=== PATIENT | male | born 1960 | race Caucasian/White ===

== ENCOUNTER 2017-07-24 05:14 | Inpatient (IN) | payer OTHER, SELFPAY ==
[2017-07-24] VITALS (18 sets, daily range): BP systolic 98–150; BP diastolic 62–106; PULSE 58–112; RESP 12–32; TEMP 36.5–37; O2SAT 93–100; BMI 18.1; BMI 17.9
--- NOTE | 2017-07-24 05:26 | RAD_ITS ---
STUDY: X-RAY CHEST REASON FOR EXAM: Male, 57 years old. Shortness of breath for 2 hours and chest pain. TECHNIQUE: PA and lateral views of the chest. COMPARISON: CT of the chest dated July 24, 2017. FINDINGS: Cardiac monitoring leads are present. There is hyperinflation of the lungs consistent with chronic obstructive lung disease (COPD). There is a moderately large right-sided pneumothorax. Estimated size is approximately 25%. There is some groundglass attenuation in the right lung probably related atelectasis. Left lung appears to be clear. Normal size heart. Normal mediastinum and ray. Normal visualized pulmonary arteries. There is atherosclerotic calcification of the aortic arch with tortuosity. There are diffuse degenerative changes of the visualized thoracic spine. There is deformity of several left-sided ribs probably related to old rib fractures. There is no demonstrated abnormality of the visualized soft tissue structures of the upper abdomen. RAD/Chest PA and Lateral IMPRESSION: 1. Moderately large right-sided pneumothorax. 2. COPD. Electronically Signed: Jennifer Moreno MD at 7:34 EDT , Service support ,
--- NOTE | 2017-07-24 05:28 | ED.VISSUMM ---
- ER Visit Summary Date of Service: 07/24/17 Chief Complaint: [] Short of breath History of Present Illness: The patient is a 57 M no short of breath when he woke up today. He does have history of COPD and smokes cigarettes. He felt well last night. No significant cough. 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 No recent albuterol prednisone. Denies any PE risk factors. Denies any cardiac disease or history of cardiac risk factors. Takes no medications Physical Examination: Vital signs reviewed General: Well-nourished well-developed Head: Normocephalic atraumatic Eyes: Pupils equal round and reactive to light extraocular movements intact ENT: TMs clear no hemotympanum no trauma Neck: Nontender full range of motion Cardiovascular: Regular rate rhythm no murmurs normal S1-S2 Respiratory: No distress and expiratory wheezes diffusely. Mild in nature. Positive barrel chest. Decreased breath sounds diffusely secondary to barrel chest. Chest nontender Abdomen: Soft nontender nondistended normal bowel sounds no masses Back: Nontender no CVA tenderness Extremities: Nontender active range of motion ?4 extremities no trauma Skin: Normal color no trauma Neuro alert oriented cranial nerves II through XII intact normal strength sensation reflexes Test Results: [] Emergency Department Course and Treatment: [] Given albuterol and Atrovent breathing treatment after being placed on nasal cannula oxygen. Lab work and chest x-ray obtained. 3 shows a 30% right-sided pneumothorax. CBC is normal except 71% segs and EKG shows sinus at rate of 100 PVCs no ischemia. Chemistries normal except glucose 125. Troponin 0 0.07. Patient given oxygen given a breathing treatment with good relief of symptoms. Initially patient's troponin came back 0.07 so a CTA was ordered to rule out PE. Discuss with surgery as well as the hospitalist. The patient likely has a 30% pneumo causing some cardiac strain. I will hold off on giving him aspirin due to the fact that he likely needs a chest tube. Discussed with surgery and they will be in to see the patient. Treatment Plan: [] Disposition: [] Impression: []R Sided pneumothorax spontaneous inDeterminate troponin This note was generated with [employer] dictation software. It may contain incorrect words, spelling, and punctuation that were not noted in review of the chart prior to signing ED Disposition - Plan for ED Patient: Chief Complaint: Shortness of Breath Referrals: [facility],Out of [NON-STAFF] -
--- NOTE | 2017-07-24 05:29 | ED.RN ---
NO OLD EKG'S IN MUSE
[2017-07-24] MEDS: Ipratropium/Albuterol Sulfate 3 ML AMPUL.NEB INHALATION ×2 (05:46→20:15)
[2017-07-24 06:03] LABS: Absolute Neutrophil Count 5.3 X10^3/uL (2.0-7.7); Basophil# 0.01 X10^3/uL; Basophil% 0.1 % (0-1); Eosinophil# 0.16 X10^3/uL; Eosinophils% 2.2 % (0-5); Hematocrit 46.8 % (40-54); Hemoglobin 15.4 g/dl (13.0-16.5); Lymphocyte % 18.9 % (19-41); Mean Corp Hgb Conc 32.9 g/gl (32-36); Mean Corpuscular Hgb 30.6 pg (27.0-32.0); Mean Platelet Vol. 10.9 fl (6.2-12.0); Monocyte# 0.56 X10^3/uL; Monocyte% 7.6 % (0-10); Neutrophil # 5.26 X10^3/uL (2.7-7.7); Neutrophil % 71.1 % (47-70); Platelet Count 246 K/mm3 (150-450); RBC Distribution Width CV 12.6 % (11.6-14.6); Red Blood Count 5.03 M/mm3 (4.6-6.2); White Blood Count 7.4 K/mm3 (4.4-11.0)
[2017-07-24 06:10] LABS: POSITIVE COUNT NO; POSITIVE DIFFERENTIAL NO; POSITIVE MORPHOLOGY NO
[2017-07-24 06:16] LABS: Anion Gap 5 (5-15); BUN 18 mg/dL (7-18); BUN/Creat Ratio 18.1 RATIO (10-20); Calcium,Total 8.6 mg/dL (8.5-10.1); Chloride 107 mmol/L (98-107); EST Glomerular Filtration Rate 82 mL/min (>60); Est Glom Filt Rate - Afr Amer 99 mL/min (>60); Estimated Creatinine Clearance 61.73 ml/min; Glucose 125 mg/dL (74-106); Potassium 4.7 mmol/L (3.5-5.1); Sodium Level 144 mmol/L (136-145)
--- NOTE | 2017-07-24 06:26 | CT_ITS ---
STUDY: CTA CHEST REASON FOR EXAM: Male, 57 years old. Shortness of breath starting this morning. RADIATION DOSAGE (If Supplied By Facility): CTDIvol = ( 5.98 ) mGy, DLP = ( 212.58 ) mGycm TECHNIQUE: The examination was performed with the intravenous administration of 75 ml of Isovue 370 contrast material. Post-processing of the angiographic images was performed, with multiplanar reformation and 3D reconstruction. Multiple images are limited by patient motion. Individualized dose optimization techniques were used for this CT. COMPARISON: Chest radiograph dated July 24, 2017. FINDINGS: Cardiac monitoring leads are present. Normal enhancement of the main pulmonary artery and right and left pulmonary arteries. Normal enhancement of the bilateral peripheral pulmonary arteries. There is no demonstrated pulmonary embolism. There is atherosclerotic calcification of the aortic arch with tortuosity. Maximum transverse dimension of ascending thoracic aorta measures approximately 3.7 cm. There is no demonstrated aortic dissection. Normal heart and pericardium. Normal mediastinum. Normal hilar regions. Normal visualized trachea and bronchi. The lungs are hyper expanded, with flattening of the hemidiaphragms. There are multiple lucencies scattered throughout both lungs probably related to centrilobular emphysema. There is a moderately large right-sided pneumothorax. Estimated size is about 25%. No pleural effusions are visualized. There is subtle left apical pleural thickening. Normal chest wall structures. There is deformity of several left-sided ribs probably related to old rib fractures. There is increased thoracic kyphosis. There is multilevel spondylosis and degenerative disc disease. Normal visualized upper abdomen. CT/CTA Chest W/WO Contrast IMPRESSION: 1. No CTA demonstrated pulmonary embolism or arterial dissection. 2. Moderately large right-sided pneumothorax. Electronically Signed: Jennifer Moreno MD at 7:43 EDT , Service support ,
--- NOTE | 2017-07-24 07:31 | PCM.HP.STD ---
Problem List (1) Shortness of breath Status: Acute History of Present Illness Date of Admission: 07/24/17 Chief Complaint: Shortness of breath The patient is a 57 year old M who was seen in the emergency room at [facility] with complaints of sudden onset of shortness of breath early this morning approximately 4 AM. Patient had no chest pain, he denied any cough, sputum production, fever, chills, or hemoptysis. Workup in the emergency room included labs which were remarkable for slightly elevated troponin, chest x-ray showed a pneumothorax on the right side approximately 40-50%, CT of the chest was performed which showed extensive emphysematous changes with blebs and the pneumothorax. Patient will be admitted to PCU, he will be seen by general surgery for chest tube insertion, cardiac enzymes will be cycled, he will be monitored on telemetry. EKG shows a normal sinus rhythm with unifocal PVCs. No evidence of ischemic changes was noted on the EKG Past Medical History Allergies No Known Allergies Allergy (Verified 07/24/17 05:16) Home Medications: Ambulatory Orders Medication Instructions Recorded NK [NK] 07/24/17 Surgical History: no surgical history Psychiatric History: No pertinent psych hx Lives: Spouse/ Significant Other Smoking Status: Light Smoker (<10/day) Tobacco Use: Cigarettes Alcohol: None Drugs: None - *Family History Maternal History Items: No pertinent history Paternal History Items: No pertinent history Review of Systems Constitutional: Denies: Anorexia, Chills, Fever, Night Sweats, Malaise, Weakness, Weight Change, Fatigue Eyes: Denies: Blurred vision, Cataracts, Conjunctivae Inflammation HEENT: Denies: Difficulty Swallowing, Dysphasia, Ear Pain, Eye Pain, Head Aches, Hearing Changes, Nasal bleeding, Nasal Congestion, Post Nasal Drip Cardiovascular: Denies: Chest Pain, Claudication, Chest Pressure, Chest Tightness, Edema, Heaviness, Light Headedness, Palpitations, Syncope Respiratory: Reports: Shortness of Breath, Shortness of breath at rest, Shortness of breath upon exertion. Denies: Cough, Hemoptysis, Pleuritic Pain, Sputum production, Wheezing Gastrointestinal: Denies: Abdominal Pain, Constipation, Diarrhea, Hematemesis, Hematochezia, Nausea, Melena, Vomiting Genitourinary: Denies: Dysuria, Frequency, Hematuria, Hesitancy, Incontinence, Nocturia, Urgency Musculoskeletal: Denies: Joint Pain, Joint stiffness, Joint swelling Skin: Denies: Dryness, Jaundice, Pruritis, Rash Neurological: Denies: Blurred vision, Double vision, Slurred speech, Difficulty swallowing, Focal weakness, Headaches, Numbness, Tingling Psychiatric: Denies: Anxiety, Depression, Homicidal Ideations, Suicidal Ideations Endocrine: Denies: Change in Body Habitus, Heat/ Cold Intolerance, Polydipsia, Polyuria, Hx of Irradiation Hematologic/ Lymphatic: Denies: Adenopathy, Anemia, Easy Bruising, Easy Bleeding, Petechiae, Purpura VTE Information - Inpt Only VTE Present on Admission: No VTE Mechan Device Prophylaxis: None VTE Pharm Prophylaxis ordered?: Yes Patient Problems: Active and Suspected Problems Shortness of breath (Acute) - Physical Exam General: Alert, Oriented x3, Cooperative, No apparent distress, Well developed, Well nourished HEENT: Atraumatic, PERRLA, EOMI, Normocephalic Oral: Moist Mucosa Neck: Supple, No JVD, Negative Carotid Bruits, No Nuchal Rigidity, Trachea Midline, Thyroid Normal Size and Texture Lungs: Clear to auscultation, No rhonchi, No wheeze, No rales, Diminished - Lung sounds are diminished on the right Cardiovascular: Regular rate, Regular Rhythm, Normal S1, Normal S2, No murmurs, No Ectopic Activity, PMI Normal Abdomen: Bowel Sounds Present, Soft, Non Tender, Non-Distended, No hernias noted Extremities: No clubbing, No cyanosis, No edema, Capillary Refill Less than 3 Seconds, Clubbing Skin: No rashes, No breakdown Musculoskeletal: No Tenderness to Palpation of Joints or Extremities Neurological: Cranial nerves II-XII grossly intact, Neuro grossly intact, Muscle tone normal, Sensory exam intact to light touch and pain, Coordination normal Psych/Mental Status: Normal Affect, Appropriate, Alert and oriented to time, place, person, mood and affect Vital Signs Temp Pulse Resp BP Pulse Ox 97.8 F 104 H 16 121/83 H 97 07/24/17 05:17 07/24/17 07:21 07/24/17 07:21 07/24/17 07:21 07/24/17 07:21 Oxygen Flow Rate (L/min) 2 Oxygen Delivery Method Nasal Cannula Weight: 54.2 kg Body Mass Index (BMI) 18.1 Laboratory Tests Past 24 Hrs 07/24/17 07/24/17 05:42 05:42 WBC 7.4 RBC 5.03 Hgb 15.4 Hct 46.8 MCV 93.0 MCH 30.6 MCHC 32.9 RDW 12.6 RDW Differential 42.0 Plt Count 246 MPV 10.9 Immature Gran % (Auto) 0.100 Neut % (Auto) 71.1 H Lymph % (Auto) 18.9 L [place] % (Auto) 7.6 Eos % (Auto) 2.2 Baso % (Auto) 0.1 Absolute Neuts (auto) 5.3 Absolute Lymphs (auto) 1.40 Total Counted Not Reportable Sodium 144 Potassium 4.7 Chloride 107 Carbon Dioxide 32.0 Anion Gap 5 BUN 18 Creatinine 1.00 Estim Creat Clear Calc 61.73 Est GFR (MDRD) Af Amer 99 Est GFR (MDRD) Non-Af 82 BUN/Creatinine Ratio 18.1 Glucose 125 H Calcium 8.6 Troponin I 0.072 H Assessment/Plan Active and Suspected Problems Shortness of breath (Acute) #1 spontaneous right pneumothorax secondary to emphysematous bleb popping-patient will be seen by general surgery and will need a chest tube, he will be admitted to PCU, monitored on telemetry #2 troponin elevation-significance unknown-patient's enzymes will be cycled on PCU #3 COPD-severe, patient is on no medications, there is no wheezing on auscultation today, I will not place him on aerosol treatments Code Visit Inpatient E&M: 79058 Init Hosp L3
--- NOTE | 2017-07-24 07:42 | HP.PCM_ITS ---
Problem List (1) Shortness of breath Status: Acute History of Present Illness Date of Admission: 07/24/17 Chief Complaint: Shortness of breath The patient is a 57 year old M who was seen in the emergency room at [facility] with complaints of sudden onset of shortness of breath early this morning approximately 4 AM. Patient had no chest pain, he denied any cough , sputum production, fever, chills, or hemoptysis. Workup in the emergency room included labs which were remarkable for slightly elevated troponin, chest x -ray showed a pneumothorax on the right side approximately 40-50%, CT of the chest was performed which showed extensive emphysematous changes with blebs and the pneumothorax. Patient will be admitted to PCU, he will be seen by general surgery for chest tube insertion, cardiac enzymes will be cycled, he will be monitored on telemetry. EKG shows a normal sinus rhythm with unifocal PVCs. No evidence of ischemic changes was noted on the EKG Past Medical History Allergies No Known Allergies Allergy (Verified 07/24/17 05:16) Home Medications: Ambulatory Orders Medication Instructions Recorded NK [NK] 07/24/17 Surgical History: no surgical history Psychiatric History: No pertinent psych hx Lives: Spouse/ Significant Other Smoking Status: Light Smoker (<10/day) Tobacco Use: Cigarettes Alcohol: None Drugs: None - *Family History Maternal History Items: No pertinent history Paternal History Items: No pertinent history Review of Systems Constitutional: Denies: Anorexia, Chills, Fever, Night Sweats, Malaise, Weakness , Weight Change, Fatigue Eyes: Denies: Blurred vision, Cataracts, Conjunctivae Inflammation HEENT: Denies: Difficulty Swallowing, Dysphasia, Ear Pain, Eye Pain, Head Aches , Hearing Changes, Nasal bleeding, Nasal Congestion, Post Nasal Drip Cardiovascular: Denies: Chest Pain, Claudication, Chest Pressure, Chest Tightness, Edema, Heaviness, Light Headedness, Palpitations, Syncope Respiratory: Reports: Shortness of Breath, Shortness of breath at rest, Shortness of breath upon exertion. Denies: Cough, Hemoptysis, Pleuritic Pain, Sputum production, Wheezing Gastrointestinal: Denies: Abdominal Pain, Constipation, Diarrhea, Hematemesis, Hematochezia, Nausea, Melena, Vomiting Genitourinary: Denies: Dysuria, Frequency, Hematuria, Hesitancy, Incontinence, Nocturia, Urgency Musculoskeletal: Denies: Joint Pain, Joint stiffness, Joint swelling Skin: Denies: Dryness, Jaundice, Pruritis, Rash Neurological: Denies: Blurred vision, Double vision, Slurred speech, Difficulty swallowing, Focal weakness, Headaches, Numbness, Tingling Psychiatric: Denies: Anxiety, Depression, Homicidal Ideations, Suicidal Ideations Endocrine: Denies: Change in Body Habitus, Heat/ Cold Intolerance, Polydipsia, Polyuria, Hx of Irradiation Hematologic/ Lymphatic: Denies: Adenopathy, Anemia, Easy Bruising, Easy Bleeding , Petechiae, Purpura VTE Information - Inpt Only VTE Present on Admission: No VTE Mechan Device Prophylaxis: None VTE Pharm Prophylaxis ordered?: Yes Patient Problems: Active and Suspected Problems Shortness of breath (Acute) - Physical Exam General: Alert, Oriented x3, Cooperative, No apparent distress, Well developed, Well nourished HEENT: Atraumatic, PERRLA, EOMI, Normocephalic Oral: Moist Mucosa Neck: Supple, No JVD, Negative Carotid Bruits, No Nuchal Rigidity, Trachea Midline, Thyroid Normal Size and Texture Lungs: Clear to auscultation, No rhonchi, No wheeze, No rales, Diminished - Lung sounds are diminished on the right Cardiovascular: Regular rate, Regular Rhythm, Normal S1, Normal S2, No murmurs, No Ectopic Activity, PMI Normal Abdomen: Bowel Sounds Present, Soft, Non Tender, Non-Distended, No hernias noted Extremities: No clubbing, No cyanosis, No edema, Capillary Refill Less than 3 Seconds, Clubbing Skin: No rashes, No breakdown Musculoskeletal: No Tenderness to Palpation of Joints or Extremities Neurological: Cranial nerves II-XII grossly intact, Neuro grossly intact, Muscle tone normal, Sensory exam intact to light touch and pain, Coordination normal Psych/Mental Status: Normal Affect, Appropriate, Alert and oriented to time, place, person, mood and affect Vital Signs Temp Pulse Resp BP Pulse Ox 97.8 F 104 H 16 121/83 H 97 07/24/17 05:17 07/24/17 07:21 07/24/17 07:21 07/24/17 07:21 07/24/17 07:21 Oxygen Flow Rate (L/min) 2 Oxygen Delivery Method Nasal Cannula Weight: 54.2 kg Body Mass Index (BMI) 18.1 Laboratory Tests Past 24 Hrs 07/24/17 07/24/17 05:42 05:42 WBC 7.4 RBC 5.03 Hgb 15.4 Hct 46.8 MCV 93.0 MCH 30.6 MCHC 32.9 RDW 12.6 RDW Differential 42.0 Plt Count 246 MPV 10.9 Immature Gran % (Auto) 0.100 Neut % (Auto) 71.1 H Lymph % (Auto) 18.9 L [place] % (Auto) 7.6 Eos % (Auto) 2.2 Baso % (Auto) 0.1 Absolute Neuts (auto) 5.3 Absolute Lymphs (auto) 1.40 Total Counted Not Reportable Sodium 144 Potassium 4.7 Chloride 107 Carbon Dioxide 32.0 Anion Gap 5 BUN 18 Creatinine 1.00 Estim Creat Clear Calc 61.73 Est GFR (MDRD) Af Amer 99 Est GFR (MDRD) Non-Af 82 BUN/Creatinine Ratio 18.1 Glucose 125 H Calcium 8.6 Troponin I 0.072 H Assessment/Plan Active and Suspected Problems Shortness of breath (Acute) #1 spontaneous right pneumothorax secondary to emphysematous bleb popping- patient will be seen by general surgery and will need a chest tube, he will be admitted to PCU, monitored on telemetry #2 troponin elevation-significance unknown-patient's enzymes will be cycled on PCU #3 COPD-severe, patient is on no medications, there is no wheezing on auscultation today, I will not place him on aerosol treatments Code Visit Inpatient E&M: 12968 Init Hosp L3
--- NOTE | 2017-07-24 08:12 | RAD_ITS ---
STUDY: X-RAY CHEST REASON FOR EXAM: Male, 57 years old. Follow-up after chest tube placement. TECHNIQUE: Single AP portable view of the chest. COMPARISON: July 24, 2017 time stamped 6:36 AM. FINDINGS: A small caliber right-sided thoracostomy tube has been placed. Cardiac monitoring leads are present. There is hyperinflation of the lungs consistent with chronic obstructive lung disease (COPD). There is interstitial thickening visible in the right lung. Left lung appears to be clear. There is partial reexpansion of the right lung. There is residual pneumothorax at the right lung apex. There is a small right-sided pleural effusion. Normal size heart. Normal mediastinum and ray. There is prominence of the pulmonary hilar arteries without peripheral pulmonary vascular congestion. There is atherosclerotic calcification of the aortic arch with tortuosity. There is demineralization of the osseous structures. Normal visualized ribs, clavicles, and shoulders. There is no demonstrated abnormality of the visualized soft tissue structures of the upper abdomen. RAD/Chest 1 View (Portable) IMPRESSION: 1. Partial reexpansion of the right lung after placement of right-sided thoracostomy tube. 2. Small right-sided pleural effusion. Electronically Signed: Jennifer Moreno MD at 11:08 EDT , Service support ,
--- NOTE | 2017-07-24 08:24 | OP.PCM_ITS ---
Problem List (1) Pneumothorax on right Status: Acute Report of Operation Date of Procedure: 07/24/17 Pre-Operative Diagnosis: j93.9 spontaneous pneumothorax right side Post-Operative Diagnosis: Same Surgery/Procedure Performed:: 58589 right-sided chest tube Type of Anesthesia:: Local Description of Procedure: Right-sided chest were sterilely prepped and draped in usual fashion. 1% lidocaine plain was injected. Small skin faisal was made. I injected local down in between the muscles entered the chest cavity were air was aspirated. A 14 [place] tube was then placed into the chest cavity and directed in the cephalad direction. It was hooked up to the tube thoracostomy kit and an air leak was identified. A butterfly hub was connected to the tube and sutured to the skin in a U fashion with a 3-0 nylon. Sterile dressings were applied. All the tube endings were taped appropriately. A portable chest x-ray was obtained. - Admit VTE Documentation VTE Present on Admission: No VTE Mechan Device Prophylaxis: None VTE Pharm Prophylaxis ordered?: No Reason prophylaxis not ordered:: Treatment Not Indicated
--- NOTE | 2017-07-24 08:26 | PCM.CONS.GEN ---
Problem List (1) Pneumothorax on right Status: Acute Reason for Consult Date of Consultation: 07/24/17 History of Present Illness: The patient is a 57 year old M who presented to the emergency department with acute onset of shortness of breath. Chest x-ray showed significant right-sided pneumothorax extending down the lateral aspect of the chest wall. He is breathing room air and is not short of breath at this time. He cannot recall any trauma to this area he cannot recall any coughing episodes. He has known COPD and he does smoke about 5 cigarettes a day. Past Medical History Allergies No Known Allergies Allergy (Verified 07/24/17 05:16) Home Medications: Ambulatory Orders Medication Instructions Recorded NK [NK] 07/24/17 Surgical History: no surgical history Psychiatric History: No pertinent psych hx Lives: Spouse/ Significant Other Smoking Status: Light Smoker (<10/day) Tobacco Use: Cigarettes Alcohol: None Drugs: None - *Family History Maternal History Items: No pertinent history Paternal History Items: No pertinent history Review of Systems Cardiovascular: Denies: Chest Pain, Chest Pressure, Chest Tightness, Palpitations Respiratory: Denies: Cough, Hemoptysis, Shortness of breath at rest, Shortness of breath upon exertion, Wheezing Gastrointestinal: Denies: Abdominal Pain, Constipation, Diarrhea, Hematemesis, Nausea, Melena, Vomiting Patient Problems: Active and Suspected Problems Shortness of breath (Acute) Pneumothorax on right (Acute) - Physical Exam Lungs: - - Breath sounds are normal on the left side there are no breath sounds present on the right side Cardiovascular: Regular rate, Regular Rhythm, No murmurs Abdomen: Bowel Sounds Present, Soft, Non Tender, Non-Distended Vital Signs Temp Pulse Resp BP Pulse Ox 97.8 F 104 H 16 121/83 H 97 07/24/17 05:17 07/24/17 07:21 07/24/17 07:21 07/24/17 07:21 07/24/17 07:21 Assessment/Plan Active and Suspected Problems Shortness of breath (Acute) Pneumothorax on right (Acute) Plan will be to place a right-sided chest tube. Risk benefits have been reviewed with the patient the patient agrees to proceed.
[2017-07-24] MEDS: Heparin Injection (Vial) 5,000 UNIT/ML VIAL 5000 UNIT SC ×2 (10:45→22:54)
--- NOTE | 2017-07-24 11:21 | ECHOD_ITS ---
Reason For Study: DYSPNEA Procedure This was a 2D Doppler, Color Flow transthoracic echocardiogram. Technically difficult study due to body habitus. The study was technically limited. Exam performed portable in patient room. Left Ventricle Normal LV size. Left ventricular systolic function is normal. The estimated ejection fraction is 65 %. Transmitral diastolic flow velocities suggest mild (stage 1) diastolic dysfunction (reversed pattern). No regional wall motion abnormalities noted. Right Ventricle Normal RV size. Normal systolic function. Atria Normal left atrium. Normal right atrium. Mitral Valve Normal mitral valve. Tricuspid Valve Normal tricuspid valve. Mild (1+) tricuspid valve insufficiency. Pulmonary artery systolic pressure is 39 mmHg. Aortic Valve Normal aortic valve. Pulmonic Valve Normal pulmonic valve. Great Vessels Normal aortic root. The pulmonary artery is normal size. Normal inferior vena cava. Pericardium/Pleural No pericardial effusion. MMode/2D Measurements & Calculations LVIDd: 3.2 cm IVSd: 0.95 cm Ao root diam: 3.3 cm LVIDs: 2.2 cm LVPWd: 0.83 cm RVDd: 3.5 cm FS: 30.7 % LAV(MOD-bp): 32.8 ml EDV(MOD-sp4): 78.6 ml EDV(MOD-sp2): 104.4 ml LAV(MOD-bp) Indexed: 20.1 ml/m2 ESV(MOD-sp4): 42.8 ml EF(MOD-sp2): 43.6 % LAV(MOD-sp2): 32.8 ml EF(MOD-sp4): 45.6 % LAV(MOD-sp4): 26.2 ml SV(MOD-sp4): 35.9 ml SV(MOD-sp2): 45.5 ml LA A4 area: 10.8 cm2 RA A4 area: 9.4 cm2 Doppler Measurements & Calculations MV E max gregorio: 46.4 cm/sec Lat Peak E' Gregorio: 11.5 cm/sec Med Peak E' Gregorio: 7.7 cm/sec MV A max gregorio: 66.9 cm/sec E/E' lat: 4.0 E/E' med: 6.0 MV E/A: 0.69 Ao V2 max: 88.5 cm/sec LV V1 max: 81.8 cm/sec TR max gregorio: 292.8 cm/sec Ao max P.1 mmHg LV V1 max P.7 mmHg TR max P.3 mmHg Interpretation Summary Normal LV size. Left ventricular systolic function is normal. The estimated ejection fraction is 65 %. Transmitral diastolic flow velocities suggest mild (stage 1) diastolic dysfunction (reversed pattern). Mild (1+) tricuspid valve insufficiency. Pulmonary artery systolic pressure is 39 mmHg. Ordering Physician: Gentry Arriaga Performed By: Juana Spencer, RDCS, RVT
[2017-07-24] MEDS: Carvedilol 6.25 MG Tablet PO ×2 (16:26→21:09)
[2017-07-24] MEDS: Aspirin 81 MG TAB.CHEW PO (16:26)
[2017-07-24] MEDS: MethylPREDNISolone 125 MG/2 ML Vial IV (20:39)
[2017-07-24] MEDS: 0.9% NaCl Peripheral Flush Adult/Peds IV (20:45)
--- NOTE | 2017-07-24 20:45 | RAD_ITS ---
STUDY: X-RAY CHEST REASON FOR EXAM: Male, 57 years old. Shortness of breath TECHNIQUE: Single AP portable view of the chest. COMPARISON: Previous study of earlier this date 10:37 AM FINDINGS: quality assurance monitor chassis leads are present. There is small caliber right-sided chest tube with tip overlying the lateral right mid hemithorax. There is hyperinflation of the lungs consistent with chronic obstructive lung disease (COPD). There is a less than 5% right apical pneumothorax, decreased from the prior study. There is pleural reaction of the lung bases. Normal size heart. Normal mediastinum and ray. Normal visualized pulmonary arteries. There are calcified plaques of the aortic arch. There is a mild mid thoracic levoscoliosis. There are several old healed left-sided rib fractures. There is no demonstrated abnormality of the visualized soft tissue structures of the upper abdomen. RAD/Chest 1 View (Portable) IMPRESSION: Findings consistent with COPD. Less than 5% right apical pneumothorax. Mild mid thoracic levoscoliosis. Several old healed left-sided rib fractures are noted. Electronically Signed: Max Zeng MD at 21:26 EDT , Service support ,
--- NOTE | 2017-07-24 20:52 | CON.PCM_ITS ---
Reason for Consult Date of Consultation: 07/24/17 Reason for Consultation: Abnormal cardiac enzymes History of Present Illness: The patient is a 57 year old M who was seen in the emergency room at [facility] with complaints of sudden onset of shortness of breath early this morning approximately 4 AM. Patient had no chest pain, he denied any cough , sputum production, fever, chills, or hemoptysis. Workup in the emergency room included labs which were remarkable for slightly elevated troponin, chest x -ray showed a pneumothorax on the right side approximately 40-50%, CT of the chest was performed which showed extensive emphysematous changes with blebs and the pneumothorax. It is not clear why the cardiac enzymes were obtained. He had no EKG changes but his cardiac enzymes suggested a rise and fall pattern which may be compatible with myocardial necrosis and a non-ST elevation myocardial infarction. Cardiology was called to evaluate him. On further questioning he has had no dizziness or diaphoresis no near syncope or syncope and has not been previously diagnosed with any cardiac condition. Past Medical History Allergies/Adverse Reactions: Allergies No Known Allergies Allergy (Verified 07/24/17 05:16) Home Medications: Ambulatory Orders Medication Instructions Recorded NK [NK] 07/24/17 Surgical History: no surgical history Psychiatric History: No pertinent psych hx - *Family History Maternal History Items: No pertinent history Paternal History Items: No pertinent history Lives: Spouse/ Significant Other Smoking Status: Light Smoker (<10/day) Tobacco Use: Cigarettes Alcohol: None Drugs: None Review of Systems - Review of Systems General: Denies: Fever, Night Sweats, Fatigue Cardiovascular: Reports: Shortness of Breath, Shortness of Breath at Rest. Denies: Chest Discomfort, Orthopnea, PND, Peripheral Edema, Palpitations, Lightheadedness, Dizziness, Near Syncope, Syncope Respiratory: Denies: Cough, Sputum Production, Hemoptysis Gastrointestinal: Denies: Hematemesis, Hematochezia, Melena Genitourinary: Denies: Dysuria, Hematuria Skin: Denies: Rash Subjectve: Pleasant cachectic man in no distress Objective: Vital Signs Temp Pulse Resp BP Pulse Ox 98.4 F 93 28 H 98/65 97 07/24/17 16:24 07/24/17 20:24 07/24/17 20:24 07/24/17 16:24 07/24/17 20:24 Oxygen Flow Rate (L/min) 2 Oxygen Delivery Method Nasal Cannula Weight: 117 lb 11.629 oz Body Mass Index (BMI) 17.9 Intake and Output for Last 24 Hours 07/22/17 07/23/17 07/24/17 23:59 23:59 23:59 Intake Total 720 / 720 Balance 720 / 720 General: Awake, Alert, Oriented x 3 HEENT: PERRL, EOMI, Sclera Non Icteric Neck: Supple, Good ROM, No Lymph Node Enlargement Lungs: Clear to auscultation Cardiovascular: Regular Rhythm, Normal S1, Normal S2, No Murmurs, No Rubs, No Gallops Vascular: No Carotid Bruits, Normal Femoral Pulses, Normal Radial Pulses, Normal Dorsalis Pedal Pulse, Normal Posterior Tibial Pulses Abdomen: Bowel Sounds Present, Soft, Non Tender, No HSM, No Organomegaly Extremities: No Cyanosis, No Clubbing, No edema Neurological: No Focal Motor or Sensory Deficit 07/24/17 09:25: Troponin I 0.916 H* 07/24/17 12:20: Troponin I 0.789 H* Rhythm: EKG: Normal sinus rhythm with no acute changes of 100 bpm ECHO: Overall preserved left ventricular ejection fraction, small pericardial effusion with no tamponade Assessment/Plan 1. Non-ST elevation myocardial infarction. The above is likely secondary to the underlying coronary artery disease. The exact etiology of the above is not clear at this particular time. He probably has underlying coronary artery disease. At some point after his chest tube is removed he may need an evaluation of the above likely via invasive means. He will continue with baby aspirin statin as well as beta-stephen. Thank you for allowing me to participate in the care of your patient. Please don't hesitate to call if any issues arise
[2017-07-24] MEDS: Atorvastatin Calcium 40 MG Tablet PO (21:09)
[2017-07-25] VITALS (15 sets, daily range): BP systolic 94–104; BP diastolic 56–68; PULSE 79–103; RESP 16–20; TEMP 36.2–37.3; O2SAT 91–99
--- NOTE | 2017-07-25 05:55 | RAD_ITS ---
STUDY: X-RAY CHEST REASON FOR EXAM: Male, 57 years old. Follow-up of right-sided pneumothorax. TECHNIQUE: Two portable AP chest radiographs are obtained with the patient upright. COMPARISON: July 24, 2017. FINDINGS: Cardiac monitoring leads are present. Right-sided thoracostomy tube is present. There is hyperinflation of the lungs consistent with chronic obstructive lung disease (COPD). There is a vague opacity the right lung apex that may represent either pleural thickening or airspace disease. There is mild prominence of the right-sided bronchovascular markings compared to the left lung. There may be a small right-sided pleural effusion. Normal size heart. Normal mediastinum and ray. Normal visualized pulmonary arteries. There is atherosclerotic calcification of the aortic arch with tortuosity. There is demineralization of the osseous structures. There are multiple old left-sided rib fractures. There is no demonstrated abnormality of the visualized soft tissue structures of the upper abdomen. RAD/Chest 1 View (Portable) IMPRESSION: 1. There is no definite evidence for residual right-sided pneumothorax. 2. COPD with pulmonary congestion on the right and small right-sided pleural effusion. Electronically Signed: Jennifer Moreno MD at 5:32 EDT , Service support ,
--- NOTE | 2017-07-25 06:33 | PCM.PN.SRG ---
Patient Problems: Active and Suspected Problems Shortness of breath (Acute) Pneumothorax on right (Acute) Subjective: Patient evaluated resting comfortably in bed. He notes shortness of breath with movement. No shortness of breath at rest. Patient denies having a regular medical doctor or communications operator. He notes history of COPD. CXR this morning demonstrated resolution of the pneumothorax. - Physical Exam General: Alert, Oriented x3, Cooperative Lungs: Clear to auscultation, Normal air movement, Diminished - bilateral bases, - - Chest tube intact. No leak noted. Cardiovascular: Regular rate, Regular Rhythm Vital Signs Temp Pulse Resp BP Pulse Ox 98.6 F 79 16 98/68 99 07/25/17 04:57 07/25/17 04:57 07/25/17 04:57 07/25/17 04:57 07/25/17 04:57 Oxygen Flow Rate (L/min) 2 Oxygen Delivery Method Nasal Cannula Weight: 117 lb 11.629 oz Body Mass Index (BMI) 17.9 Intake and Output for Last 24 Hours 07/23/17 07/24/17 07/25/17 23:59 23:59 23:59 Intake Total 820 / 820 Balance 820 / 820 Laboratory Tests Past 24 Hrs 07/24/17 07/24/17 09:25 12:20 Troponin I 0.916 H* 0.789 H* Medical Necessity - Tobacco Use Smoking Status: Light Smoker (<10/day) Tobacco Use: Cigarettes Assessment/Plan Active and Suspected Problems Shortness of breath (Acute) Pneumothorax on right (Acute) I am following this patient in conjunction with Dr. Malik Impression: Right sided pneumothorax, resolved Place chest tube to water seal and recheck CXR in 6 hours We will continue to monitor this patient Code Visit Inpatient E&M: 87014 [facility] Hosp L1
--- NOTE | 2017-07-25 06:44 | PN.SURG_ITS ---
Patient Problems: Active and Suspected Problems Shortness of breath (Acute) Pneumothorax on right (Acute) Subjective: Patient evaluated resting comfortably in bed. He notes shortness of breath with movement. No shortness of breath at rest. Patient denies having a regular medical doctor or geomagnetician. He notes history of COPD. CXR this morning demonstrated resolution of the pneumothorax. - Physical Exam General: Alert, Oriented x3, Cooperative Lungs: Clear to auscultation, Normal air movement, Diminished - bilateral bases , - - Chest tube intact. No leak noted. Cardiovascular: Regular rate, Regular Rhythm Vital Signs Temp Pulse Resp BP Pulse Ox 98.6 F 79 16 98/68 99 07/25/17 04:57 07/25/17 04:57 07/25/17 04:57 07/25/17 04:57 07/25/17 04:57 Oxygen Flow Rate (L/min) 2 Oxygen Delivery Method Nasal Cannula Weight: 117 lb 11.629 oz Body Mass Index (BMI) 17.9 Intake and Output for Last 24 Hours 07/23/17 07/24/17 07/25/17 23:59 23:59 23:59 Intake Total 820 / 820 Balance 820 / 820 Laboratory Tests Past 24 Hrs 07/24/17 07/24/17 09:25 12:20 Troponin I 0.916 H* 0.789 H* Medical Necessity - Tobacco Use Smoking Status: Light Smoker (<10/day) Tobacco Use: Cigarettes Assessment/Plan Active and Suspected Problems Shortness of breath (Acute) Pneumothorax on right (Acute) I am following this patient in conjunction with Dr. Malik Impression: Right sided pneumothorax, resolved Place chest tube to water seal and recheck CXR in 6 hours We will continue to monitor this patient Code Visit Inpatient E&M: 05080 [facility] Hosp L1
[2017-07-25] MEDS: Ipratropium/Albuterol Sulfate 3 ML AMPUL.NEB INHALATION ×4 (06:45→19:17)
[2017-07-25] MEDS: Aspirin 81 MG TAB.CHEW PO (08:28)
[2017-07-25] MEDS: Heparin Injection (Vial) 5,000 UNIT/ML VIAL 5000 UNIT SC ×2 (09:41→21:37)
--- NOTE | 2017-07-25 09:59 | CASEMGMT ---
Face to Face with patient for initial transition planning/care coordination assessment. DIAZ HERNANDEZ introduced self and role at [facility], pt voices understanding and consents to assessment at this time. Pt is sitting up in bed in no distress at this time. Pt is A/O x4 at this time and answers all questions appropriately at this time. Care providers, pharmacy, and demographics verified. See attached link. Pt voices no further concerns/needs at this time. Advised pt to ask for CM if any further questions/concerns/needs arise, voices understanding. Referral to Saqib BRANDON for AD info at this time, voices understanding. PLAN: [place] DIAZ HERNANDEZ
[2017-07-25] MEDS: Carvedilol 6.25 MG Tablet PO ×2 (11:16→23:28)
--- NOTE | 2017-07-25 11:45 | CASEMGMT ---
SW spoke with patient regarding advance directives. He said he would like to talk about them with his . SW told him if they would like to complete them and need help to ask for Social Work. Karon DUARTE MSW
--- NOTE | 2017-07-25 13:00 | RAD_ITS ---
STUDY: X-RAY CHEST REASON FOR EXAM: Male, 57 years old. History of pneumothorax. TECHNIQUE: Single AP portable view of the chest. COMPARISON: Comparison is made with prior examination dated July 25, 2017 at 3:57 AM. FINDINGS: EKG electrodes are seen. A small caliber chest tube is seen along the lateral aspect of the right hemithorax. Minimal residual right apical pneumothorax. Stable increased interstitial markings are seen in the lungs more prominent on the right side suggestive of scarring. Normal size heart. Normal mediastinum and ray. Normal visualized pulmonary arteries. Normal visualized aortic arch and descending thoracic aorta. Normal visualized thoracic spine. Multiple healed left-sided rib fractures. There is no demonstrated abnormality of the visualized soft tissue structures of the upper abdomen. RAD/Chest 1 View (Portable) IMPRESSION: Minimal right apical pneumothorax. Electronically Signed: Gerry Diaz MD at 14:32 EDT Tel [phone], Service support ,
--- NOTE | 2017-07-25 18:32 | PCM.PROGNOTE ---
Patient Problems: Active and Suspected Problems Shortness of breath (Acute) Pneumothorax on right (Acute) Subjective: Patient was seen and examined today, I discussed his care with with cardiology today, patient's chest tubes on waterseal today and there may be a possibility the chest tube will be pulled tomorrow. Patient will need a coronary angiogram sometime in the near future, not sure when cardiology is planning on this. Patient has had no chest pain or shortness of breath since yesterday. - Physical Exam General: Alert, Oriented x3, Cooperative, No apparent distress, Well developed, Well nourished HEENT: Atraumatic, PERRLA, EOMI, Normocephalic Oral: Moist Mucosa Neck: Supple, No JVD, No Nuchal Rigidity, Trachea Midline, Thyroid Normal Size and Texture Lungs: Clear to auscultation, No rhonchi, No wheeze, No rales, Diminished Cardiovascular: Regular rate, Regular Rhythm, Normal S1, Normal S2, No murmurs, No Ectopic Activity, PMI Normal, No rub noted, No Gallop Abdomen: Bowel Sounds Present, Soft, Non Tender, Non-Distended, No hernias noted Extremities: No clubbing, No cyanosis, No edema, Capillary Refill Less than 3 Seconds Skin: No rashes, No breakdown Musculoskeletal: No Tenderness to Palpation of Joints or Extremities Neurological: Cranial nerves II-XII grossly intact, Neuro grossly intact, Muscle tone normal, Sensory exam intact to light touch and pain, Coordination normal Psych/Mental Status: Normal Affect, Appropriate, Alert and oriented to time, place, person, mood and affect Vital Signs Temp Pulse Resp BP Pulse Ox 99.1 F 96 18 104/68 94 07/25/17 16:15 07/25/17 16:15 07/25/17 16:15 07/25/17 16:15 07/25/17 16:15 Oxygen Flow Rate (L/min) 2 Oxygen Delivery Method Room Air Weight: 53.4 kg Body Mass Index (BMI) 17.9 Intake and Output for Last 24 Hours 07/23/17 07/24/17 07/25/17 23:59 23:59 23:59 Intake Total 820 / 820 1010 / 1010 Output Total 200 / 200 Balance 820 / 820 810 / 810 Medical Necessity - Tobacco Use Smoking Status: Light Smoker (<10/day) Tobacco Use: Cigarettes Assessment/Plan Active and Suspected Problems Shortness of breath (Acute) Pneumothorax on right (Acute) #1 spontaneous right pneumothorax secondary to emphysematous bleb popping-general surgery is continuing to manage his chest tube #2 [id number] is participating in his care, continue aspirin, statin, and beta-stephen. Patient will need coronary angiogram. #3 COPD-severe, patient's lungs remain clear Code Visit Inpatient E&M: 76196 Subs Hosp L2
--- NOTE | 2017-07-25 18:35 | PN_ITS ---
Patient Problems: Active and Suspected Problems Shortness of breath (Acute) Pneumothorax on right (Acute) Subjective: Patient was seen and examined today, I discussed his care with with cardiology today, patient's chest tubes on waterseal today and there may be a possibility the chest tube will be pulled tomorrow. Patient will need a coronary angiogram sometime in the near future, not sure when cardiology is planning on this. Patient has had no chest pain or shortness of breath since yesterday. - Physical Exam General: Alert, Oriented x3, Cooperative, No apparent distress, Well developed, Well nourished HEENT: Atraumatic, PERRLA, EOMI, Normocephalic Oral: Moist Mucosa Neck: Supple, No JVD, No Nuchal Rigidity, Trachea Midline, Thyroid Normal Size and Texture Lungs: Clear to auscultation, No rhonchi, No wheeze, No rales, Diminished Cardiovascular: Regular rate, Regular Rhythm, Normal S1, Normal S2, No murmurs, No Ectopic Activity, PMI Normal, No rub noted, No Gallop Abdomen: Bowel Sounds Present, Soft, Non Tender, Non-Distended, No hernias noted Extremities: No clubbing, No cyanosis, No edema, Capillary Refill Less than 3 Seconds Skin: No rashes, No breakdown Musculoskeletal: No Tenderness to Palpation of Joints or Extremities Neurological: Cranial nerves II-XII grossly intact, Neuro grossly intact, Muscle tone normal, Sensory exam intact to light touch and pain, Coordination normal Psych/Mental Status: Normal Affect, Appropriate, Alert and oriented to time, place, person, mood and affect Vital Signs Temp Pulse Resp BP Pulse Ox 99.1 F 96 18 104/68 94 07/25/17 16:15 07/25/17 16:15 07/25/17 16:15 07/25/17 16:15 07/25/17 16:15 Oxygen Flow Rate (L/min) 2 Oxygen Delivery Method Room Air Weight: 53.4 kg Body Mass Index (BMI) 17.9 Intake and Output for Last 24 Hours 07/23/17 07/24/17 07/25/17 23:59 23:59 23:59 Intake Total 820 / 820 1010 / 1010 Output Total 200 / 200 Balance 820 / 820 810 / 810 Medical Necessity - Tobacco Use Smoking Status: Light Smoker (<10/day) Tobacco Use: Cigarettes Assessment/Plan Active and Suspected Problems Shortness of breath (Acute) Pneumothorax on right (Acute) #1 spontaneous right pneumothorax secondary to emphysematous bleb popping- general surgery is continuing to manage his chest tube #2 [id number] is participating in his care, continue aspirin, statin , and beta-stephen. Patient will need coronary angiogram. #3 COPD-severe, patient's lungs remain clear Code Visit Inpatient E&M: 74692 Subs Hosp L2
[2017-07-25] MEDS: Atorvastatin Calcium 40 MG Tablet PO (21:37)
--- NOTE | 2017-07-25 23:51 | CPS ---
patient refusing Bipap therapy at this time. Patient informed of PAP benefits; patient still refusing said therapy.
[2017-07-26] VITALS (11 sets, daily range): BP systolic 96–134; BP diastolic 50–84; PULSE 73–94; RESP 14–20; TEMP 36.6–36.9; O2SAT 96–100
[2017-07-26 00:26] LABS: Anion Gap 5 (5-15); BUN 25 mg/dL (7-18); BUN/Creat Ratio 30.6 RATIO (10-20); Calcium,Total 8.4 mg/dL (8.5-10.1); Chloride 104 mmol/L (98-107); Creatinine, Serum 0.82 mg/dL (0.70-1.30); EST Glomerular Filtration Rate 103 mL/min (>60); Est Glom Filt Rate - Afr Amer 125 mL/min (>60); Estimated Creatinine Clearance 74.17 ml/min; Glucose 108 mg/dL (74-106); Phosphorus 2.5 mg/dL (2.5-4.9); Potassium 3.9 mmol/L (3.5-5.1); Sodium Level 140 mmol/L (136-145)
--- NOTE | 2017-07-26 05:50 | RAD_ITS ---
STUDY: X-RAY CHEST REASON FOR EXAM: Male, 57 years old. History of right pneumothorax. TECHNIQUE: Single AP portable view of the chest. COMPARISON: Comparison is made with prior study dated July 25, 2017. FINDINGS: EKG liquids are seen. Stable appearance of the right small caliber chest tube along the lateral aspect of the right hemithorax. Tiny residual right apical pneumothorax. This is unchanged. Hyperinflation. Decreased bronchovascular markings in the left hemithorax most likely secondary to emphysematous changes. Normal size heart. Normal mediastinum and ray. Normal visualized pulmonary arteries. Normal visualized aortic arch and descending thoracic aorta. Normal visualized thoracic spine. Multiple healed left rib fractures. There is no demonstrated abnormality of the visualized soft tissue structures of the upper abdomen. RAD/Chest 1 View (Portable) IMPRESSION: Tiny residual right apical pneumothorax. Electronically Signed: Gerry Diaz MD at 8:58 EDT Tel [phone], Service support ,
[2017-07-26] MEDS: Ipratropium/Albuterol Sulfate 3 ML AMPUL.NEB INHALATION ×2 (06:36→14:56)
--- NOTE | 2017-07-26 07:21 | PN.CARD_ITS ---
Subjectve: The patient was seen and evaluated. He appears to be comfortable at this time but still is on the chest tube drainage. He has denied any chest pain whatsoever Objective: Vital Signs Temp Pulse Resp BP Pulse Ox 97.8 F 87 14 96/74 98 07/26/17 03:08 07/26/17 03:08 07/26/17 03:08 07/26/17 03:08 07/26/17 03:08 Oxygen Flow Rate (L/min) 2 Oxygen Delivery Method Room Air Weight: 117 lb 11.629 oz Body Mass Index (BMI) 17.9 Intake and Output for Last 24 Hours 07/24/17 07/25/17 07/26/17 23:59 23:59 23:59 Intake Total 820 / 820 1380 / 1380 0 / 0 Output Total 203 / 203 100 / 100 Balance 820 / 820 1177 / 1177 -100 / -100 General: Ill Appearing HEENT: PERRL, EOMI, Sclera Non Icteric Neck: Supple, Good ROM, No Lymph Node Enlargement Lungs: Diminished Luke Bases Cardiovascular: Regular Rhythm, Normal S1, Normal S2, No Murmurs, No Rubs, No Gallops Vascular: No Carotid Bruits, Normal Femoral Pulses, Normal Radial Pulses, Normal Dorsalis Pedal Pulse, Normal Posterior Tibial Pulses Abdomen: Bowel Sounds Present, Soft, Non Tender, No HSM, No Organomegaly Extremities: No Cyanosis, No Clubbing, No edema Neurological: No Focal Motor or Sensory Deficit 07/25/17 23:51: Sodium 140, Potassium 3.9, Chloride 104, Carbon Dioxide 31.0, Anion Gap 5, BUN 25 H, Creatinine 0.82, Est GFR (MDRD) Af Amer 125, Est GFR ( MDRD) Non-Af 103, BUN/Creatinine Ratio 30.6 H, Glucose 108 H, Calcium 8.4 L, Phosphorus 2.5, Magnesium 2.0 Rhythm: EKG: ECHO: Stress Test: Cardiac Cath: PCI: CT Surgery: Holter monitor: EPS: PPM: CXR: Chest CT Scan: Medical Necessity - Tobacco Use Smoking Status: Light Smoker (<10/day) Tobacco Use: Cigarettes Assessment/Plan 1. Non-ST elevation myocardial infarction. The above is likely secondary to the underlying coronary artery disease. The exact etiology of the above is not clear at this particular time. He probably has underlying coronary artery disease. At some point after his chest tube is removed he may need an evaluation of the above likely via invasive means. He will continue with baby aspirin statin as well as beta-stephen. The timing of the above is yet to be determined. I will discuss it further with my covering colleague. Thank you for allowing me to participate in the care of your patient. Please don't hesitate to call if any issues arise
--- NOTE | 2017-07-26 07:40 | PCM.PN.SRG ---
Patient Problems: Active and Suspected Problems Shortness of breath (Acute) Pneumothorax on right (Acute) Subjective: Patient evaluated resting comfortably in bed. He denies increased shortness of breath and chest pain. CXR this morning appears to be stable. No air leak noted. - Physical Exam General: Alert, Oriented x3, Cooperative Lungs: Clear to auscultation, Normal air movement, Diminished - bilateral bases Vital Signs Temp Pulse Resp BP Pulse Ox 97.8 F 89 14 96/74 98 07/26/17 03:08 07/26/17 06:57 07/26/17 03:08 07/26/17 03:08 07/26/17 03:08 Oxygen Flow Rate (L/min) 2 Oxygen Delivery Method Room Air Weight: 117 lb 11.629 oz Body Mass Index (BMI) 17.9 Intake and Output for Last 24 Hours 07/24/17 07/25/17 07/26/17 23:59 23:59 23:59 Intake Total 820 / 820 1380 / 1380 0 / 0 Output Total 203 / 203 100 / 100 Balance 820 / 820 1177 / 1177 -100 / -100 Laboratory Tests Past 24 Hrs 07/25/17 23:51 Sodium 140 Potassium 3.9 Chloride 104 Carbon Dioxide 31.0 Anion Gap 5 BUN 25 H Creatinine 0.82 Estim Creat Clear Calc 74.17 Est GFR (MDRD) Af Amer 125 Est GFR (MDRD) Non-Af 103 BUN/Creatinine Ratio 30.6 H Glucose 108 H Calcium 8.4 L Phosphorus 2.5 Magnesium 2.0 Medical Necessity - Tobacco Use Smoking Status: Light Smoker (<10/day) Tobacco Use: Cigarettes Assessment/Plan Active and Suspected Problems Shortness of breath (Acute) Pneumothorax on right (Acute) I am following this patient in conjunction with Dr. Malik Impression: Right sided pneumothorax, resolved Patient discussed with Dr. Malik Will pull chest tube this morning. Code Visit Inpatient E&M: 13019 Subs Hosp L1
[2017-07-26] MEDS: Heparin Injection (Vial) 5,000 UNIT/ML VIAL 5000 UNIT SC (09:15)
[2017-07-26] MEDS: Aspirin 81 MG TAB.CHEW PO (09:15)
--- NOTE | 2017-07-26 09:55 | NURSING ---
Chest tube dressing completely saturated, held pressure and redressed dressing with saline gauze. Dr. Malik and Dr. Arriaga in to assess patient at this time. Orders to place sand bag and continue to monitor. VSS at this time and Isaias chargeback specialist aware.
--- NOTE | 2017-07-26 13:48 | RAD_ITS ---
STUDY: X-RAY CHEST REASON FOR EXAM: Male, 57 years old. Chest tube removal. TECHNIQUE: Single AP portable view of the chest. COMPARISON: Comparison is made with prior study done earlier today. FINDINGS: The small-caliber right-sided chest tube has been removed. EKG electrodes are seen. Stable appearance of the small right apical pneumothorax. The remainder of the chest is unremarkable. RAD/Chest 1 View (Portable) IMPRESSION: Stable small right apical pneumothorax. Electronically Signed: Gerry Diaz MD at 14:02 EDT Tel [phone], Service support ,
--- NOTE | 2017-07-26 15:59 | PCM.DC ---
- Discharge Diagnoses Current Active Problems: Current Active and Chronic Problems Shortness of breath (Acute) Pneumothorax on right (Acute) You will use the following diet at home:: No restrictions Your food should be the consistency of: Regular Your liquids should be the consistency of: Regular/Thin Discharge Activity: Return to Normal Activity Return to work on:: 08/01/17 Weight Bearing Status: Full weight bearing Allergies/Adverse Reactions: Allergies No Known Allergies Allergy (Verified 07/24/17 05:16) Medications to take at Discharge Atorvastatin Calcium [Lipitor] 40 mg PO QHS #30 tab 07/26/17 Carvedilol [Coreg (Beta Shaji)] 6.25 mg PO BID #60 tab 07/26/17 The following prescriptions were given: Atorvastatin Calcium [Lipitor] 40 mg PO QHS #30 tab Carvedilol [Coreg (Beta Shaji)] 6.25 mg PO BID #60 tab Primary Care Physician: [facility] Doctor,Out of [NON-STAFF] - Please follow up with your Primary Care Physician in: Dr. Jarocho Mejia as directed Please Follow Up With: Oswaldo Hernandez MD When: 1-2 weeks
--- NOTE | 2017-07-26 16:08 | PCM.DC.SUM ---
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 Patient denied any chest pain, diaphoresis, nausea, or vomiting. Workup in the emergency room included a chest x-ray which showed a pneumothorax of approximately 30% on the right side, CTA of the chest was performed and did not show any evidence of ulnar embolism. There was noted to be severe emphysematous changes in the patient's lungs along with bleb formation. Patient's labs were remarkable for an elevated troponin of 0.072, EKG showed a normal sinus rhythm without evidence of ischemic changes. Patient was seen in consultation by general surgery who inserted a chest tube for reexpansion of the right lung. Patient was admitted to PCU, serial cardiac enzymes were performed and the patient's troponin kathy to a high of 0.916 indicating a non-STEMI, cardiology was consulted, recommended an echocardiogram which showed a normal EF but the presence of mild pulmonary hypertension and recommended placing the patient on a statin, a baby aspirin per day, and a beta-shaji. Cardiology did not want to proceed with any further workup while the patient was in the hospital due to his pneumothorax. On 07/26/17, patient's chest tube was removed by surgery, repeat chest x-ray showed expansion of the lung after the chest tube was removed, there is some bleeding around the chest tube site and a suture was placed in the site to stop the bleeding. Patient was instructed to follow-up with Dr. Hernandez (cardiology) in approximately 10 days for further workup of his non-STEMI, he was referred to a PCP in the [place] area (Dr. Mejia) for follow-up care and removal of the patient's suture in his right chest wall area. On 07/26/17, patient was seen and examined and discharged in stable condition to home. Discharge Activity: Return to Normal Activity Return to work on:: 08/01/17 Weight Bearing Status: Full weight bearing Home Medications: Medications to take at Discharge Atorvastatin Calcium [Lipitor] 40 mg PO QHS #30 tab 07/26/17 Carvedilol [Coreg (Beta Shaji)] 6.25 mg PO BID #60 tab 07/26/17 Following Prescrptions Were Given to Patient: Atorvastatin Calcium [Lipitor] 40 mg PO QHS #30 tab Carvedilol [Coreg (Beta Shaji)] 6.25 mg PO BID #60 tab Primary Care Physician: [facility] Doctor,Out of [NON-STAFF] - Please follow up with your Primary Care Physician in: Dr. Jarocho Mejia as directed Please Follow Up With: Oswaldo Hernandez MD When: 1-2 weeks Additional Instructions: No smoking Disposition: Home Minutes spent on discharge:: 32 Patient Condition:: Stable Medical Necessity - Tobacco Use Smoking Status: Light Smoker (<10/day) Tobacco Use: Cigarettes Meaningful Use Info Meaningful Use Diagnoses (Choose all that apply): AMI - AMI Aspirin given w/in 24hrs of arrival?: Yes ASA at discharge?: Yes Statins at discharge?: Yes Asif/ARB at discharge?: No Reason Asif/ARB not ordered:: Not indicated Beta Shaji at discharge?: Yes Done w/ Acute IN measure.: Yes Code Visit Inpatient E&M: 18959 Disch Hosp
--- NOTE | 2017-07-26 16:18 | DS.PCM_ITS ---
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 Patient denied any chest pain, diaphoresis, nausea, or vomiting. Workup in the emergency room included a chest x-ray which showed a pneumothorax of approximately 30% on the right side, CTA of the chest was performed and did not show any evidence of ulnar embolism. There was noted to be severe emphysematous changes in the patient's lungs along with bleb formation. Patient 's labs were remarkable for an elevated troponin of 0.072, EKG showed a normal sinus rhythm without evidence of ischemic changes. Patient was seen in consultation by general surgery who inserted a chest tube for reexpansion of the right lung. Patient was admitted to PCU, serial cardiac enzymes were performed and the patient's troponin kathy to a high of 0.916 indicating a non- STEMI, cardiology was consulted, recommended an echocardiogram which showed a normal EF but the presence of mild pulmonary hypertension and recommended placing the patient on a statin, a baby aspirin per day, and a beta-shaji. Cardiology did not want to proceed with any further workup while the patient was in the hospital due to his pneumothorax. On 07/26/17, patient's chest tube was removed by surgery, repeat chest x-ray showed expansion of the lung after the chest tube was removed, there is some bleeding around the chest tube site and a suture was placed in the site to stop the bleeding. Patient was instructed to follow-up with Dr. Hernandez (cardiology) in approximately 10 days for further workup of his non-STEMI, he was referred to a PCP in the [place] area (Dr. Mejia) for follow-up care and removal of the patient's suture in his right chest wall area. On 07/26/17, patient was seen and examined and discharged in stable condition to home. Discharge Activity: Return to Normal Activity Return to work on:: 08/01/17 Weight Bearing Status: Full weight bearing Home Medications: Medications to take at Discharge Atorvastatin Calcium [Lipitor] 40 mg PO QHS #30 tab 07/26/17 Carvedilol [Coreg (Beta Shaji)] 6.25 mg PO BID #60 tab 07/26/17 Following Prescrptions Were Given to Patient: Atorvastatin Calcium [Lipitor] 40 mg PO QHS #30 tab Carvedilol [Coreg (Beta Shaji)] 6.25 mg PO BID #60 tab Primary Care Physician: [facility] Doctor,Out of [NON-STAFF] - Please follow up with your Primary Care Physician in: Dr. Jarocho Mejia as directed Please Follow Up With: Oswaldo Hernandez MD When: 1-2 weeks Additional Instructions: No smoking Disposition: Home Minutes spent on discharge:: 32 Patient Condition:: Stable Medical Necessity - Tobacco Use Smoking Status: Light Smoker (<10/day) Tobacco Use: Cigarettes Meaningful Use Info Meaningful Use Diagnoses (Choose all that apply): AMI - AMI Aspirin given w/in 24hrs of arrival?: Yes ASA at discharge?: Yes Statins at discharge?: Yes Asif/ARB at discharge?: No Reason Asif/ARB not ordered:: Not indicated Beta Shaji at discharge?: Yes Done w/ Acute GA measure.: Yes Code Visit Inpatient E&M: 75794 Disch Hosp
== END 2017-07-26 16:29 | disposition home or self-care (01) | DRG 190 ==
LOC: ED 05:49 → PCU 08:02
PROVIDERS: Internal Medicine; Admitting Provider Internal Medicine; Emergency Provider Emergency Medicine; Visit Provider Internal Medicine
DX: J43.0 Unilateral pulmonary emphysema [MacLeod's syndrome] (principal); I21.4 Non-ST elevation (NSTEMI) myocardial infarction; J93.12 Secondary spontaneous pneumothorax; F17.210 Nicotine dependence, cigarettes, uncomplicated; I27.20 Pulmonary hypertension, unspecified; I25.10 Atherosclerotic heart disease of native coronary artery without angina pectoris; Z79.82 Long term (current) use of aspirin; Z79.899 Other long term (current) drug therapy
CPT/HCPCS: 36415; 71045; 71046; 71275; 80048; 83735; 84100; 84484; 85025; 93005; 93306; 94002; 94640; 99285; 99406; Q9967; A4216